=== PATIENT | female | born 1945 | race Caucasian/White ===

== ENCOUNTER 2024-12-03 06:43 | Emergency (ER) | payer MEDICARE, SELFPAY ==
[2024-12-03 06:50] VITALS: BP 105/72
[2024-12-03 07:17] VITALS: BMI 24.7
--- NOTE | 2024-12-03 08:24 | ED.GENMED ---
History of Present Illness
General
Chief Complaint: Facial Problem
Source: patient
Exam Limitations: none
Time Seen by Provider: 12/03/24 07:54
Nursing documentation reviewed up to this point in time: agreed with
History of Present Illness
History of Present Illness:
79-year-old female with history of HTN states she was outside 2 days ago, stumbled and fell on a bridge covering a [place], struck her nose on the side of the bridge and injured her left 4th and 5th fingers. She did not lose consciousness, she is not
anticoagulated, she was able to get herself up and has been doing ADLs as usual. She denies neck pain or headache.
Past History
Past History
ED Past Medical History: HTN and Other (Osteoporosis)
ED Past Surgical History: Gynecological and Orthopedic
Social History
Tobacco: Smoker
Alcohol: None
Drug: None
Living: with family
Review of Systems
Review of Systems
Allergies reviewed?: Yes
All Other Systems: ROS reviewed and negative except as documented in HPI and ROS
Musculoskeletal: Reports other (Pain left 4th and 5th fingers, swelling of nose); Denies neck pain or back pain
Phy Exam
Physical Exam
Physical Exam:
GENERAL: No acute distress. A&Ox3.
CONSTITUTIONAL: Afebrile.
EYES: clear, conjunctivae normal
Head: Normocephalic/atraumatic
ENMT: moist mucus membranes, Pharynx nl, no tenderness with palpation of the nasal bone. Tip of nose is tender
RESPIRATORY: Regular respirations, nonlabored, lungs clear.
CARDIOVASCULAR: Regular rate and rhythm, + murmur, no rubs.
GI: Soft, nontender, normal BS
MUSCULOSKELETAL: No spinal bony tenderness. Ambulates well. Left hand with mild tenderness of the 4th and 5th fingers, no swelling, adequate range of motion without significant pain. Moves with ease. Well perfused.
SKIN: Warm, dry, pink, mild soft tissue swelling of the tip of nose.
PSYCH: Normal mood and affect. Well kept, interactive and appropriate
NEUROLOGIC: Awake, alert and oriented. No focal neurological deficits
Course
Orders/Labs/Results
Orders:
Orders
12/03/24 06:55
CR Nasal Bones Comp Min 3 View Urgent
Comment:
Reason For Exam: pain injury
Hand, Left 3 View [CR Hand - Left Min 3 Views] Urgent
Comment:
Reason For Exam: pain injury
Vital Signs
Initial and Last Documented VS:
Initial Vital Signs
Temp Pulse Resp BP Pulse Ox
97.9 F 74 16 105/72 94
12/03/24 06:50 12/03/24 06:50 12/03/24 06:50 12/03/24 06:50 12/03/24 06:50
Last Documented Vital Signs
Temp Pulse Resp BP Pulse Ox
97.8 F 68 18 136/66 95
12/03/24 08:51 12/03/24 08:51 12/03/24 08:51 12/03/24 08:51 12/03/24 08:51
MDM/Problems Addressed
MDM/Problems Addressed:
79-year-old female with history of HTN states she was outside 2 days ago, stumbled and fell on a bridge covering a [place], struck her nose on the side of the bridge and injured her left 4th and 5th fingers. She did not lose consciousness, she is not
anticoagulated, she was able to get herself up and has been doing ADLs as usual. She denies neck pain or headache.
Nasal bones x-ray read by this examiner: No fracture noted no other abnormality noted
Left hand x-ray reviewed by this examiner: No fractures
Patient is very spry, pleasant 79-year-old, no significant injury.
*Pulse Oximetry
SaO2: 94
Oxygen Mode of Delivery: Room air
Patient hypoxic: not evaluated
*Critical Care Note
Total Time (30-74mins, 75-104mins- exclusive of procedures): Not Applicable
ED Attending Note
-
Portions of this chart may have been created with voice recognition software.� Occasional wrong word or��sound alike� substitutions may have occurred due to the inherent limitations of voice recognition software.
Discharge Plan
Departure
Patient Disposition: Home (Routine Discharge)
Date of Disposition: 12/03/24
Time of Disposition: 08:19
Patient with high blood pressure during this ER visit?: No
Condition: Good
Discharge Problem:
Fall from slip, trip, or stumble, Contusion of nose, Contusion of finger
Instructions: Contusion
Prescriptions:
No Action
acetaminophen-codeine 1 TABLET tablet
1 - 2 tab PO Q6HPRN PRN (Reason: severe pain) Qty: 8 0RF
methylprednisolone [Medrol (Prashant)] 4 MG tablets,dose pack
4 tab PO . DIRECT Qty: 1 0RF
Activity Restrictions/Additional Instructions:
As we discussed, no broken nose or fingers. Soft tissue swelling only.
Interventions
Interventions:
*Risk Screen - Suicide Last Done: 12/03/24 06:50
*General Assessment Last Done: 12/03/24 07:17
*Neglect/Abuse Screening Last Done: 12/03/24 06:50
*ED- Fall Risk Assessment Last Done: 12/03/24 07:17
*ED COVID-19 Vaccine History Last Done: 12/03/24 07:17
*Nursing Disposition Last Done: 12/03/24 08:51
ED- Neurological Assessment Last Done: 12/03/24 07:17
ED-Skin Assessment Last Done: 12/03/24 07:17
Discharge Date and Time
Discharge Date/Time: 12/03/24 08:45
Print Language: [place]
--- NOTE | 2024-12-03 08:48 | EDRN ---
Reviewed discharge instructions with patient. Verbalized understanding. Ambulated with steady gait to the lobby.
[2024-12-03 08:51] VITALS: BP 136/66
== END 2024-12-03 08:45 | disposition home or self-care (01) ==
LOC: EMR 06:43
PROVIDERS: EMERGENCY PHYSICIAN Emergency Medicine; FAMILY PHYSICIAN Family Medicine
DX: S00.33XA Contusion of nose, initial encounter (principal); S60.042A Contusion of left ring finger without damage to nail, initial encounter; S60.052A Contusion of left little finger without damage to nail, initial encounter; R22.0 Localized swelling, mass and lump, head; W18.39XA Other fall on same level, initial encounter; Y92.89 Other specified places as the place of occurrence of the external cause; I10 Essential (primary) hypertension; F17.210 Nicotine dependence, cigarettes, uncomplicated
CPT/HCPCS: 99284; 70160; 73130